=== PATIENT | female | born 1975 | race African-American/Black ===

== ENCOUNTER 2020-07-13 17:16 | Emergency (ER) | payer BC ==
[~2020-07-13] VITALS: Ht 157.5 cm; Wt 68.0 kg
[2020-07-13 17:20] VITALS: BP_SYST 140
[2020-07-13] MEDS ORDERED: CLOT10SO7 TP (19:16)
[2020-07-13 19:35] VITALS: BP_SYST 140
== END 2020-07-13 19:35 | disposition home or self-care (01) ==
LOC: SED 17:16
DX: B36.9 Superficial mycosis, unspecified (principal); H62.42 Otitis externa in other diseases classified elsewhere, left ear; Z88.6 Allergy status to analgesic agent
CPT/HCPCS: 82962; 99282

== ENCOUNTER 2020-08-13 06:57 | Emergency (ER) | payer BC ==
[~2020-08-13] VITALS: Ht 157.5 cm; Wt 68.0 kg
[~2020-08-13 06:57] MED LIST: CLOT10SO7 TP
[2020-08-13 07:10] VITALS: BP_SYST 139
[2020-08-13] MEDS ORDERED: IBUP-1969 PO (08:28)
[2020-08-13 08:58] VITALS: BP_SYST 138
== END 2020-08-13 08:58 | disposition home or self-care (01) ==
LOC: SED 06:57
DX: S63.502A Unspecified sprain of left wrist, initial encounter (principal); S46.912A Strain of unspecified muscle, fascia and tendon at shoulder and upper arm level, left arm, initial encounter; J45.909 Unspecified asthma, uncomplicated; Z88.5 Allergy status to narcotic agent; Z88.6 Allergy status to analgesic agent; Z79.899 Other long term (current) drug therapy; W18.39XA Other fall on same level, initial encounter; Y93.89 Activity, other specified; Y92.89 Other specified places as the place of occurrence of the external cause; Y99.8 Other external cause status
CPT/HCPCS: 73030; 99284